=== PATIENT | female | born 1975 | race Caucasian/White ===

== ENCOUNTER 2018-10-25 06:49 | Day surgery (SDC) | payer BC ==
[~2018-10-25] VITALS: Ht 170.2 cm; Wt 83.5 kg
[2018-10-25 07:41] VITALS: BP 117/84; PULSE 108; TEMP 97.8
[2018-10-25] MEDS ORDERED: PRILOSEC 20MG20 MG PO (07:45)
[2018-10-25] MEDS ORDERED: TIROSINT150 MC1 PO (07:46)
[2018-10-25] MEDS ORDERED: ZOLOFT 100MG100 MG PO (07:47)
[2018-10-25] MEDS ORDERED: FLEXERIL 1010 MG/TAB PO (07:48)
[2018-10-25] MEDS ORDERED: AZULFIDINE500 MG/TAB PO (07:49)
[2018-10-25] MEDS ORDERED: PHENERGAN 25 TA25 MG PO (07:49)
[2018-10-25] MEDS ORDERED: ATIVAN 1MG T1 MG/TAB PO (07:50)
[2018-10-25] MEDS ORDERED: IRON 27 MG PO (07:51)
[2018-10-25] MEDS ORDERED: NATURAL E400 IU PO (07:52)
[2018-10-25] MEDS ORDERED: VITAMINC1000TA PO (07:52)
[2018-10-25] MEDS ORDERED: ZOFRAN 4MG T4 MG/TAB PO (07:53)
[2018-10-25] MEDS ORDERED: MULTI VITAMINS1 TAB PO (07:53)
[2018-10-25] MEDS ORDERED: MELATONIN5 M1 SL (07:54)
[2018-10-25] MEDS ORDERED: VITAMIN B COMPL1 SGL PO (07:55)
[2018-10-25] MEDS ORDERED: SEROQUEL 2525 MG/TAB PO (07:55)
[2018-10-25] MEDS ORDERED: IMITREX100 MG PO (07:56)
[2018-10-25] MEDS ORDERED: CANASA 1000MG1000 MG RC (08:51)
[2018-10-25 09:00] VITALS: BP 102/69; PULSE 95
[2018-10-25 09:15] VITALS: BP 106/69; PULSE 79
[2018-10-25 09:30] VITALS: BP 105/63; PULSE 88
[2018-10-25 09:45] VITALS: BP 110/83; PULSE 92
== END 2018-10-25 10:00 | disposition home or self-care (01) ==
LOC: SDCO 06:49
DX: K51.00 Ulcerative (chronic) pancolitis without complications (principal); K63.89 Other specified diseases of intestine; G43.909 Migraine, unspecified, not intractable, without status migrainosus; E03.9 Hypothyroidism, unspecified; F32.9 Major depressive disorder, single episode, unspecified; Z90.710 Acquired absence of both cervix and uterus; Z79.899 Other long term (current) drug therapy; Z88.6 Allergy status to analgesic agent; Z88.5 Allergy status to narcotic agent; Z80.7 Family history of other malignant neoplasms of lymphoid, hematopoietic and related tissues
CPT/HCPCS: J2250; J2405; J2704; J7120